=== PATIENT | male | born 1940 | race Caucasian/White ===

== ENCOUNTER 2022-01-07 11:07 | Inpatient (IN) ==
[2022-01-07] MEDS ORDERED: CeFAZolin Syr 2,000MG/20 ML 2,000 MG/20 ML SYRINGE IVPB ONE (11:40)
[2022-01-07] MEDS ORDERED: Ringers Solution, Lactated 1,000 ML IVC SCH (11:45)
[2022-01-07] MEDS ORDERED: Ondansetron 4 MG/2 ML VIAL IVP PRN ×2 (11:51→16:54)
[2022-01-07] MEDS ORDERED: *HR* HYDROmorphone PF 0.5 MG/0.5 ML SYRINGE IVP PRN (11:51)
[2022-01-07] MEDS ORDERED: *HR* OxyCODONE Immed Rel 5 MG TABLET PO PRN (11:51)
[2022-01-07] MEDS ORDERED: Promethazine 6.25 MG in Water for inj. (sterile) 20 ML IVPB PRN (11:51)
[2022-01-07] MEDS ORDERED: *HR* Rocuronium Bromide 50 MG/5 ML VIAL ONE (13:06)
[2022-01-07] MEDS ORDERED: *HR* FentaNYL (PF) 100 MCG/2 ML VIAL ONE (13:06)
[2022-01-07] MEDS ORDERED: Lidocaine -MPF 2% 2 ML VIAL ONE (13:06)
[2022-01-07] MEDS ORDERED: *HR* Propofol 200 MG/20 ML VIAL IVP ONE (13:06)
[2022-01-07] MEDS ORDERED: Ondansetron 4 MG/2 ML VIAL ONE (13:06)
[2022-01-07] MEDS ORDERED: Lidocaine HCL 4 ML Topical Solution (Laryng-O-Jet Kit Sterile Pak) TP ONE (13:06)
[2022-01-07] MEDS ORDERED: cefOXitin 1,000 MG, Sodium Chloride IRRigation 1,000 ML IR ONE (13:10)
[2022-01-07] MEDS ORDERED: *HR* Phenylephrine 10 MG/ML VIAL ONE (13:10)
[2022-01-07] MEDS ORDERED: *HR* Heparin 5,000 UNIT/ML VIAL ONE ×2 (13:12→13:54)
[2022-01-07] MEDS ORDERED: 0.9 % Sodium Chloride Mini Bag 0 ML ONE (13:13)
[2022-01-07] MEDS ORDERED: Lidocaine 1% 20 ML MDV ONE (13:13)
[2022-01-07] MEDS ORDERED: Heparin 1,000 UNITS/500 mL 0 ML ONE (13:17)
[2022-01-07] MEDS ORDERED: *HR* Vasopressin 20 UNIT/ML VIAL ONE (13:35)
[2022-01-07] MEDS ORDERED: Albumin Human 5% 12.5 GM/250 ML IV.SOLN ONE (13:35)
[2022-01-07] MEDS ORDERED: *HR* Magnesium Sulfate 1 GM/2 ML VIAL ONE (14:01)
[2022-01-07] MEDS ORDERED: Ketamine HCL *QUVA* 50mg (1mL) SYRINGE ONE (14:13)
[2022-01-07] MEDS ORDERED: Sugammadex Sodium 200 MG/2 ML VIAL IV ONE (14:33)
[2022-01-07] MEDS ORDERED: *HR* HYDROMORPHONE 2 MG/ML VIAL ONE (15:19)
[2022-01-07] MEDS ORDERED: *HR* Dextrose 50 % in Water (Syg) 50 ML SYRINGE ONE (16:50)
[2022-01-07] MEDS ORDERED: *HR* HYDROmorphone (PF) 1 MG/ML SYRINGE IVP PRN (16:54)
[2022-01-07] MEDS ORDERED: *HR* OxyCODONE Oral Soln 5 MG/5 ML UD.LIQ GTUBE PRN (16:54)
[2022-01-07] MEDS: 0.9 % Sodium Chloride 1,000 ML IVC SCH (17:27)
[2022-01-07] MEDS: *HR* Heparin 5,000 UNIT/ML VIAL SQ SCH (17:28)
[2022-01-08 03:33] LABS: Hematocrit 35.4 % (37.5-50.1); Hemoglobin 11.3 g/dL (12.9-16.9); Mean Corpuscular HGB Conc 31.9 g/dL (31.6-35.5); Mean Corpuscular Hemoglobin 31.5 pg (28.0-33.3); Mean Corpuscular Volume 98.6 fL (83.0-100.0); Platelet Count 167 K/mcL (140-400); Red Blood Count 3.59 M/mcL (4.19-5.50); Red Cell Distribution Width 14.7 % (11.5-14.5); White Blood Count 14.1 K/mcL (4.3-11.1)
[2022-01-08] MEDS: 0.9 % Sodium Chloride 1,000 ML IVC SCH ×3 (03:43→23:58)
[2022-01-08 03:59] LABS: BUN/Creatinine Ratio 21 (6-26); Blood Urea Nitrogen 15 mg/dL (8-23); Calcium 9.3 mg/dL (8.6-10.3); Carbon Dioxide 28 mEq/L (23-29); Chloride 104 mEq/L (98-107); Glucose 120 mg/dL (70-105); Magnesium 2.2 mg/dL (1.6-2.6); Osmolality,Calculated 288 (280-300); Potassium 5.3 mEq/L (3.5-5.1); Sodium 138 mEq/L (136-145); eGFR For African Americans > 60 (> 60); eGFR For Non-African Americans > 60 (> 60)
[2022-01-08] MEDS: *HR* Heparin 5,000 UNIT/ML VIAL SQ SCH ×2 (06:09→17:28)
[2022-01-08] MEDS: Pantoprazole 40 MG VIAL IVP SCH (08:58)
[2022-01-09 02:48] LABS: BUN/Creatinine Ratio 25 (6-26); Blood Urea Nitrogen 16 mg/dL (8-23); Calcium 8.5 mg/dL (8.6-10.3); Carbon Dioxide 24 mEq/L (23-29); Chloride 106 mEq/L (98-107); Glucose 108 mg/dL (70-105); Osmolality,Calculated 284 (280-300); Potassium 4.2 mEq/L (3.5-5.1); Sodium 136 mEq/L (136-145); eGFR For African Americans > 60 (> 60); eGFR For Non-African Americans > 60 (> 60)
[2022-01-09] MEDS: *HR* Heparin 5,000 UNIT/ML VIAL SQ SCH ×2 (05:55→17:47)
[2022-01-09] MEDS: Pantoprazole 40 MG VIAL IVP SCH (07:44)
[2022-01-09] MEDS: 0.9 % Sodium Chloride 1,000 ML IVC SCH ×2 (09:41→11:22)
[2022-01-10] MEDS: 0.9 % Sodium Chloride 1,000 ML IVC SCH ×2 (03:20→19:56)
[2022-01-10] MEDS: *HR* Heparin 5,000 UNIT/ML VIAL SQ SCH ×2 (05:33→18:11)
[2022-01-10 06:49] LABS: Hematocrit 35.6 % (37.5-50.1); Hemoglobin 11.6 g/dL (12.9-16.9); Mean Corpuscular HGB Conc 32.6 g/dL (31.6-35.5); Mean Corpuscular Hemoglobin 31.8 pg (28.0-33.3); Mean Corpuscular Volume 97.5 fL (83.0-100.0); Mean Platelet Volume 11.2 fL (9.4-12.4); Platelet Count 163 K/mcL (140-400); Red Blood Count 3.65 M/mcL (4.19-5.50); Red Cell Distribution Width 14.5 % (11.5-14.5); White Blood Count 7.8 K/mcL (4.3-11.1)
[2022-01-10 06:58] LABS: BUN/Creatinine Ratio 26 (6-26); Blood Urea Nitrogen 15 mg/dL (8-23); Calcium 8.6 mg/dL (8.6-10.3); Carbon Dioxide 26 mEq/L (23-29); Chloride 104 mEq/L (98-107); Glucose 106 mg/dL (70-105); Magnesium 1.7 mg/dL (1.6-2.6); Osmolality,Calculated 283 (280-300); Potassium 4.2 mEq/L (3.5-5.1); Sodium 136 mEq/L (136-145); eGFR For African Americans > 60 (> 60); eGFR For Non-African Americans > 60 (> 60)
[2022-01-10] MEDS: Pantoprazole 40 MG VIAL IVP SCH (08:45)
[2022-01-10] MEDS ORDERED: Amiodarone Premix 150 MG/100 ML BAG IVPB ONE (20:37)
[2022-01-10] MEDS ORDERED: Amiodarone Premix 360 MG/200 ML BAG IVC ONE (20:37)
[2022-01-11] MEDS: Amiodarone Premix 360 MG/200 ML BAG IVC SCH ×2 (03:27→14:05)
[2022-01-11] MEDS: *HR* Heparin 5,000 UNIT/ML VIAL SQ SCH ×2 (05:01→17:46)
[2022-01-11] MEDS: 0.9 % Sodium Chloride 1,000 ML IVC SCH (09:00)
[2022-01-11] MEDS: Pantoprazole 40 MG VIAL IVP SCH (09:00)
[2022-01-11] MEDS ORDERED: Perflutren Lipid Microsphere 1.3 ML in 0.9 % Sodium Chloride 8.7 ML IVP PRN (15:36)
[2022-01-12 02:13] LABS: BUN/Creatinine Ratio 21 (6-26); Blood Urea Nitrogen 11 mg/dL (8-23); Calcium 8.2 mg/dL (8.6-10.3); Carbon Dioxide 28 mEq/L (23-29); Chloride 104 mEq/L (98-107); Glucose 135 mg/dL (70-105); Magnesium 1.9 mg/dL (1.6-2.6); Osmolality,Calculated 283 (280-300); Potassium 3.4 mEq/L (3.5-5.1); Sodium 136 mEq/L (136-145); eGFR For African Americans > 60 (> 60); eGFR For Non-African Americans > 60 (> 60)
[2022-01-12] MEDS: *HR* Heparin 5,000 UNIT/ML VIAL SQ SCH ×2 (05:24→17:44)
[2022-01-12] MEDS ORDERED: Potassium Chloride Elixir 20 MEQ/15 ML UDC GTUBE ONE (06:42)
[2022-01-12] MEDS: Pantoprazole 40 MG VIAL IVP SCH (09:01)
[2022-01-13] MEDS: 0.9 % Sodium Chloride 1,000 ML IVC SCH ×2 (01:00→08:38)
[2022-01-13] MEDS: *HR* Heparin 5,000 UNIT/ML VIAL SQ SCH ×2 (05:41→18:15)
[2022-01-13 08:31] LABS: BUN/Creatinine Ratio 21 (6-26); Blood Urea Nitrogen 11 mg/dL (8-23); Carbon Dioxide 27 mEq/L (23-29); Chloride 108 mEq/L (98-107); Glucose 126 mg/dL (70-105); Magnesium 1.7 mg/dL (1.6-2.6); Osmolality,Calculated 289 (280-300); Potassium 3.5 mEq/L (3.5-5.1); Sodium 139 mEq/L (136-145); eGFR For African Americans > 60 (> 60); eGFR For Non-African Americans > 60 (> 60)
[2022-01-13] MEDS: Pantoprazole 40 MG VIAL IVP SCH (08:37)
[2022-01-13] MEDS: Potassium Chloride Elixir 20 MEQ/15 ML UDC GTUBE SCH (10:38)
[2022-01-13 13:46] LABS: Basophils % 0.1 %; Eosinophils # 0.1 K/mcL (0.0-0.6); Hematocrit 31.4 % (37.5-50.1); Immature Granulocytes % 0.4 % (0-4); Lymphocytes # 2.9 K/mcL (0.6-4.6); Lymphocytes % 26.3 %; Mean Corpuscular HGB Conc 31.8 g/dL (31.6-35.5); Mean Corpuscular Hemoglobin 31.5 pg (28.0-33.3); Mean Corpuscular Volume 99.1 fL (83.0-100.0); Mean Platelet Volume 11.9 fL (9.4-12.4); Monocytes # 0.6 K/mcL (0.0-1.3); Monocytes % 5.8 %; Neutrophils # 7.4 K/mcL (1.6-8.9); Platelet Count 144 K/mcL (140-400); Red Blood Count 3.17 M/mcL (4.19-5.50); Red Cell Distribution Width 15.2 % (11.5-14.5); Segmented Neutrophils % 66.4 %; White Blood Count 11.1 K/mcL (4.3-11.1)
[2022-01-14] MEDS: *HR* Heparin 5,000 UNIT/ML VIAL SQ SCH (05:13)
[2022-01-14 08:08] VITALS: TEMP 98.1
[2022-01-14] MEDS: Potassium Chloride Elixir 20 MEQ/15 ML UDC GTUBE SCH (08:22)
[2022-01-14] MEDS: Pantoprazole 40 MG VIAL IVP SCH (08:22)
[2022-01-14 10:19] VITALS: O2SAT 96
[2022-01-14 10:45] VITALS: PULSE 70
[2022-01-14 11:11] VITALS: BP 107/52
== END 2022-01-14 12:05 | disposition home health service (06) | DRG 326 ==
LOC: SAMDAY 11:07 → 2NNU 16:40
PROVIDERS: ADMIT Thoracic Surgery (Cardiothoracic Vascular Surgery); ATTEND Thoracic Surgery (Cardiothoracic Vascular Surgery)